=== PATIENT | female | born 1990 | race Caucasian/White ===

== ENCOUNTER 2017-08-17 08:54 | Inpatient (IN) | payer OTHER ==
[~2017-08-17] VITALS: Ht 152.4 cm; Wt 69.4 kg
[~2017-08-17 08:54] MED LIST: AMOX/CLAV POT 81 TAB PO; FLEXERIL10 MG PO; MOBIC15 MG PO; OCELLA 3 MG-0.01 TAB
[2017-08-17 09:49] LABS: ABSOLUTE BASOPHIL COUNT 0 /CUMM (0.0-0.2); ABSOLUTE EOSINOPHIL COUNT 0 /CUMM (0.0-0.7); ABSOLUTE GRANULOCYTE CT 9.7 /CUMM (1.4-6.5); ABSOLUTE MONOCYTE COUNT 0.6 /CUMM (0.10-0.60); BASOPHIL % 0.2 % (0.0-2.0); EOSINOPHIL % 0.1 % (0-5); GRANULOCYTE % 78.6 % (42.2-75.2); HEMATOCRIT 40.7 % (37-47); MEAN CORPUSCULAR HGB 29.3 PG (27.0-31.0); MEAN CORPUSCULAR HGB CONC 33.3 G/DL (33.0-37.0); MEAN CORPUSCULAR VOLUME 88.2 FL (81.0-99.0); MEAN PLATELET VOLUME 9.8 FL (7.4-10.4); PLATELET COUNT 215 /CUMM (130-400); RBC DISTRIBUTION WIDTH 13.1 % (11.5-14.5); RED BLOOD CELL CT 4.61 /CUMM (4.20-5.40); WHITE BLOOD CELL COUNT 12.4 /CUMM (4.8-10.8)
[2017-08-17] MEDS ORDERED: PRENATAL ONE D1 EACH PO (10:11)
--- NOTE | 2017-08-18 05:20 | History & Physical Pre-Op ---
General Information and HPI History of Present Illness: 27 yo G1 lmp 11/04/16 edc 08/11/17 admitted for postdates . care complete and unremarkable. Allergies/Medications Allergies: Coded Allergies: NO KNOWN ALLERGIES (08/17/17) Home Med list Vit No.129/Iron/FA ( One Daily Tablet) 27 MG IRON-800 MCG TABLET 1 TAB PO DAILY (Reported) Past History Medical History Psychiatric: anxiety Surgical History Pertinent Surgical History: non-contributory Past Family/Social History Psychosocial History Smoking Status: Never Smoked Review of Systems Review of Systems Constitutional: Reports: no symptoms. EENTM: Reports: no symptoms. Cardiovascular: Reports: no symptoms. Respiratory: Reports: no symptoms. GI: Reports: no symptoms. Genitourinary: Reports: no symptoms. Musculoskeletal: Reports: no symptoms. Skin: Reports: no symptoms. Neurological/Psychological: Reports: no symptoms. Hematologic/Endocrine: Reports: no symptoms. Immunologic/Allergic: Reports: no symptoms. All Other Systems: Reviewed and Negative Exam & Diagnostic Data Last 24 Hrs of Vital Signs/I&O Intake & Output 08/18 0800 08/18 0000 08/17 1600 Intake Total Output Total Balance Patient 153 lb Weight Physical Exam: HEENT: NCAT Chest: CTA CV: nl S1S2 Pelvic: LTCP Ext: no c/c/e Neuro: nonfocal Assessment/Plan Assessment/Plan: postdates, poor maria score Misoprostil cervical ripening As Ranked By This Provider Problem List: 1.
--- NOTE | 2017-08-18 05:23 | PN- Obstetrical ---
Subjective Subjective: comfortable Review of Systems: temp 99.7 Objective Last 24 Hrs of Vital Signs/I&O Intake & Output 08/18 0800 08/18 0000 08/17 1600 Intake Total Output Total Balance Patient 153 lb Weight Physical Exam: Cx: /-1 ext: NT Obstetric Exam Dilation (cm): 8 Effacement (%): 90 Station: -1 Membranes: SROM Fluid: light meconium Multiple Gestation? No Contractions: q2 Assessment/Plan Assessment/Plan active labor, SROM with lt mec cat 2 tracing IFM Problem List: 1.
[2017-08-18 12:12] VITALS: BP 122/59
[2017-08-19 08:53] LABS: ABSOLUTE BASOPHIL COUNT 0 /CUMM (0.0-0.2); ABSOLUTE EOSINOPHIL COUNT 0 /CUMM (0.0-0.7); ABSOLUTE GRANULOCYTE CT 13.5 /CUMM (1.4-6.5); ABSOLUTE LYMPH COUNT 2.2 /CUMM (1.2-3.4); ABSOLUTE MONOCYTE COUNT 0.7 /CUMM (0.10-0.60); BASOPHIL % 0.3 % (0.0-2.0); EOSINOPHIL % 0.1 % (0-5); GRANULOCYTE % 82.1 % (42.2-75.2); MEAN CORPUSCULAR HGB 29.5 PG (27.0-31.0); MEAN CORPUSCULAR HGB CONC 33.3 G/DL (33.0-37.0); MEAN CORPUSCULAR VOLUME 88.5 FL (81.0-99.0); MEAN PLATELET VOLUME 9.1 FL (7.4-10.4); PLATELET COUNT 136 /CUMM (130-400); RBC DISTRIBUTION WIDTH 12.9 % (11.5-14.5); WHITE BLOOD CELL COUNT 16.5 /CUMM (4.8-10.8)
--- NOTE | 2017-08-19 11:40 | Labor & Delivery Summary ---
Delivery Summary Vaginal Delivery: Vaginal: vertex : : vacuum Station/Position at [place]: +3 direct OP Episiotomy/Lacerations: Episiotomy/Lacerations: episiotomy Type: Right mediolateral with third-degree extension Repair: Layered 0 and 3-0 Polysorb Anesthesia: Epidural and local Placenta: Placenta: manual Anesthesia: epidural, light sedation Cord PH Value: 7.17 Baby's Weight: 7 lbs. 3 oz. 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
[2017-08-19 12:37] LABS: HEMATOCRIT 25.6 % (37-47); RED BLOOD CELL CT 2.89 /CUMM (4.20-5.40)
[2017-08-20] MEDS ORDERED: IBUPROFEN800 M1 PO (13:21)
[2017-08-20] MEDS ORDERED: DOCUSATE SODIU100 M3 PO (13:21)
[2017-08-20] MEDS ORDERED: PERCOCET 5-3251 EACH PO (13:21)
== END 2017-08-20 15:00 | DRG 775 ==
LOC: GNO 08:54
PROVIDERS: Obstetrics & Gynecology
PROC: 0W8NXZZ Division of Female Perineum, External Approach (ICD-10-PCS; principal; 2017-08-19)
PROC: 10D07Z6 Extraction of Products of Conception, Vacuum, Via Natural or Artificial Opening (ICD-10-PCS; principal; 2017-08-19)
DX: O77.9 Labor and delivery complicated by fetal stress, unspecified (principal); Z37.0 Single live birth; Z3A.41 41 weeks gestation of pregnancy; O77.0 Labor and delivery complicated by meconium in amniotic fluid
CPT/HCPCS: GNOP; 36415; 81001; 84112; 87086; J1885; J7120

== ENCOUNTER 2017-08-23 18:54 | Emergency (ER) | payer OTHER ==
[~2017-08-23] VITALS: Ht 152.4 cm; Wt 65.3 kg
[~2017-08-23 18:54] MED LIST changes: +DOCUSATE SODIU100 M3 PO; +IBUPROFEN800 M1 PO; +PERCOCET 5-3251 EACH PO; +PRENATAL ONE D1 EACH PO
--- NOTE | 2017-08-23 22:28 | ED HEADACHE COMPLAINT ---
History of Present Illness General Chief Complaint: General Adult Stated Complaint: PT GOT A EPIDURAL THDAY AND HEADACHE EVERY SINCE Source: patient, family Exam Limitations: no limitations Vital Signs & Intake/Output Vital Signs & Intake/Output Vital Signs Date Time Temp Pulse Resp B/P B/P Pulse O2 O2 Flow FiO2 Mean Ox Delivery Rate 08/24 0209 98.5 71 20 120/90 98 Room Air 08/23 2329 98.5 67 20 143/90 100 Room Air 08/23 1927 97.2 66 22 135/92 99 Room Air ED Intake and Output 08/24 0000 08/23 1200 Intake Total 2000 Output Total Balance 1999 Intake, IV 1999 Patient 144 lb Weight Weight Reported by Patient Measurement Method Allergies Coded Allergies: NO KNOWN ALLERGIES (NONE 08/19/17) Reconcile Medications Docusate Sodium 100 MG CAPSULE 100 MG PO BID PRN STOOL SOFTENER Ibuprofen 800 MG TABLET 800 MG PO Q6P PRN UTERINE CRAMPING Oxycodone HCl/Acetaminophen (Percocet 5-325 MG Tablet) 5 MG-325 MG TABLET 1 TAB PO Q3P PRN PAIN SCALE 5-10 Vit No.129/Iron/FA ( One Daily Tablet) 27 MG IRON-800 MCG TABLET 1 TAB PO DAILY (Reported) Triage Note: HAD EPIDURAL ON 08/18, AND VAGINAL DELIVERY, DC'D ON 08/20. C/O HAD A HEADACHE WITH NASUEA SINCE. Triage Nurses Notes Reviewed? yes Onset: Abrupt Duration: day(s): (5), constant, continues in ED, getting worse Timing: single episode today Quality/Severity: moderate, pressure, throbbing Severity Numbers: 7 Head Injury Location: global No Modifying Factors: none Associated Symptoms: nausea/vomiting LMP (ages 10-50): unknown : No Patient currently breastfeeds: Yes HPI: 27-year-old female no past medical history 5 days status post uncomplicated vaginal delivery presents for evaluation of a headache. Patient states that she received an epidural for pain control during the delivery 5 days ago. She states that she developed a headache while in the hospital shortly after the epidural. She was treated with Tylenol and fluids and headache improved and she was discharged. She states that after discharge the headache worsened and is now constant and getting worse. The pain is located globally in her head described as pressure and throbbing. She's been taking Tylenol and IBUPROFEN at home without much improvement. She does report a history of migraines and feels like this is similar. She reports associated nausea without vomiting and some intermittent blurred vision. No fevers, neck pain, rashes, abdominal pain chest pain shortness of breath or any other associated symptoms. She currently is breast-feeding. (Arya Joiner) Past History Travel History Traveled to [place] past 21 day No Medical History Any Pertinent Medical History? see below for history Psychiatric: anxiety Surgical History Surgical History: non-contributory Psychosocial History What is your primary language Upper Sorbian Tobacco Use: Never used ETOH Use: denies use Family History Hx Contributory? No (Arya Joiner) Review of Systems Review of Systems Constitutional: Reports: no symptoms. Eyes: Reports: no symptoms. Ears, Nose, Throat, Mouth: Reports: no symptoms. Respiratory: Reports: no symptoms. Cardiovascular: Reports: no symptoms. Gastrointestinal/Abdominal: Reports: nausea. Genitourinary: Reports: no symptoms. Musculoskeletal: Reports: no symptoms. Skin: Reports: no symptoms. Neurological/Psychological: Reports: headache. Hematologic/Endocrine: Reports: no symptoms. Endocrine: Reports: no symptoms. Immunologic/Allergic: Reports: no symptoms. All Other Systems: Reviewed and Negative (Arya Joiner) Physical Exam Physical Exam General Appearance: well developed/nourished, no apparent distress, alert, awake Head: atraumatic, normal appearance Eyes: Bilateral: normal appearance, PERRL, EOMI. Ears, Nose, Throat: normal pharynx, normal ENT inspection, hearing grossly normal Neck: normal inspection, supple, full range of motion Respiratory: normal breath sounds, chest non-tender, no respiratory distress, lungs clear Cardiovascular: regular rate/rhythm, normal peripheral pulses Gastrointestinal: normal bowel sounds, soft, non-tender, no organomegaly Back: normal inspection, normal range of motion, no vertebral tenderness Extremities: normal inspection, normal capillary refill, normal range of motion, no edema Psychiatric: awake, alert, oriented x 3 Cranial Nerves: normal hearing, normal speech, PERRL Coordination/Gait: normal finger to nose, normal gait Motor/Sensory: no motor/sensory deficits Skin: intact, normal color, warm/dry Core Measures Sepsis Present: No Sepsis Focused Exam Completed? No (Arya Joiner) Progress Differential Diagnosis: cluster WALSH, IC mass/tumor, intracranial Hem., meningitis , migraine WALSH, post LP headache, subarach. Hem., tension WALSH Plan of Care: Orders Procedure Date/time Status Regular Diet 08/24 B Active Patient Data 08/24 020 Active Saline Lock 08/25 11 Active Misc Message 08/25 11 Active ED Holding Orders 08/25 11 Active Admit to inpatient 08/25 11 Active Code Status 08/25 11 Active URINALYSIS 08/24 5 Complete COMPREHENSIVE METABOLIC PANEL 08/24 5 Complete CBC WITHOUT DIFFERENTIAL 08/24 5 Complete Intake & Output 08/23 9649 Active Current Medications Sig/Yomaira Start time Last Medication Dose Stop Time Status Admin Ketorolac 30 MG Q6 08/24 0600 UNVr Tromethamine 08/24 1201 (Toradol) Acetaminophen 1,000 MG Q6H 08/24 14 AC (Ofirmev) 08/24 0629 N/A 1 UNIT (No Carrier) Dextrose/Sodium 1,000 ML .Q10H 08/24 14 AC 08/24 Chloride 0047 (D5W-1/2 Normal Saline 1000ML) Ondansetron HCl 4 MG Q6P PRN 08/24 001 AC (Zofran) Pregabalin 100 MG Q8P PRN 08/24 001 AC (Lyrica) Laboratory Tests 08/24/17 0044: Anion Gap 10, Estimated GFR > 60, BUN/Creatinine Ratio 10.0, Glucose 80, Calcium 7.8 L, Total Bilirubin 0.4, AST 22, ALT 45, Alkaline Phosphatase 98, Total Protein 5.4 L, Albumin 2.8 L, Globulin 2.6, Albumin/Globulin Ratio 1.1, CBC w Diff NO MAN DIFF REQ, RBC 3.17 L, MCV 88.4, MCH 29.4, MCHC 33.3, RDW 13.4, MPV 7.2 L, Gran % 81.2 H, Lymphocytes % 13.6 L, Monocytes % 4.4, Eosinophils % 0.5, Basophils % 0.3, Absolute Granulocytes 9.1 H, Absolute Lymphocytes 1.5, Absolute Monocytes 0.5, Absolute Eosinophils 0.1, Absolute Basophils 0, Urinalysis LIGHT H, Urine Color PINK H, Urine Clarity CLDY H, Urine pH 6.5, Ur Specific [place] 1.020, Urine Protein 30 H, Urine Ketones 40 H, Urine Nitrite NEG, Urine Bilirubin NEG, Urine Urobilinogen 0.2, Ur Leukocyte Esterase SMALL H, Ur Microscopic SEDIMENT EXAMINED, Urine RBC 50-75 H, Urine WBC 15-25 H, Ur Epithelial Cells FEW, Urine Bacteria FEW H, Urine Mucus FEW, Urine Hemoglobin LARGE H, Urine Glucose NEG Patient seen and evaluated. She's had a headache for the past 5 days since a epidural. She does also report a previous history of headaches. This is similar. She is neurologically intact vital signs are stable. Patient is medicated with IV fluids IV Tylenol IV Toradol without any improvement. Case discussed with anesthesia who does not recommend a blood patch at this time. They feel like headaches related to lumbar punctures are self-limiting and this may not be related since she has a previous headache history. They recommended. Gamblin 100 mg every 8 hours as needed. Discussed with patient about not breast-feeding while on this medication. Discussed with Dr. Walton who spoke with Dr. Calloway who will admit the patient to his service. Basic labs ordered. Patient was admitted to the [facility] service. (Arya Joiner) Departure Departure Disposition: STILL A PATIENT Condition: Stable Clinical Impression Primary Impression: Headache Qualifiers: Headache type: unspecified Headache chronicity pattern: acute headache Intractability: intractable Qualified Code: R51 - Headache Referrals: Esmer Silvestre DO (PCP/Family) Departure Forms: Customer Survey General Discharge Information (Arya Joiner) Admission Note Spoke With: Jake Calloway MD Documentation of Exam: Documentation of any treatments & extenuating circumstances including Concerns Regarding Discharge (functional status, medication knowledge or non-compliance, living conditions, etc.) that warrant an admission rather than observation: pt with headache, most likely due to spinal anesthesia... will treat with supportive meds overnight and have anesthesiology attending evaluate patient. PA/CHEMICALS FERMENTATION OPERATOR Co-Sign Statement Statement: ED Attending supervision documentation- X] I saw and evaluated the patient. I have also reviewed all the pertinent lab results and diagnostic results. I agree with the findings and the plan of care as documented in the PA's/CHEMICALS FERMENTATION OPERATOR's documentation. 08/23/17, 23:45... Pt with spinal headache, most likely from spinal anesthesia vs migraine.... exam otherwise benign... will check labs, consult anesthesia. [] I have reviewed the ED Record and agree with the PA's/CHEMICALS FERMENTATION OPERATOR's documentation. [] Additions or exceptions (if any) to the PAs/CHEMICALS FERMENTATION OPERATOR's note and plan are summarized below: [] (Isabelle ELDRIDGE,Alton Gutierrez)
[2017-08-24 01:00] LABS: ABSOLUTE BASOPHIL COUNT 0 /CUMM (0.0-0.2); ABSOLUTE GRANULOCYTE CT 9.1 /CUMM (1.4-6.5); ABSOLUTE MONOCYTE COUNT 0.5 /CUMM (0.10-0.60); MEAN PLATELET VOLUME 7.2 FL (7.4-10.4)
[2017-08-24 01:08] LABS: ABSOLUTE EOSINOPHIL COUNT 0.1 /CUMM (0.0-0.7); ABSOLUTE LYMPH COUNT 1.5 /CUMM (1.2-3.4); BASOPHIL % 0.3 % (0.0-2.0); EOSINOPHIL % 0.5 % (0-5); GRANULOCYTE % 81.2 % (42.2-75.2); MEAN CORPUSCULAR HGB 29.4 PG (27.0-31.0); MEAN CORPUSCULAR HGB CONC 33.3 G/DL (33.0-37.0); MEAN CORPUSCULAR VOLUME 88.4 FL (81.0-99.0); RBC DISTRIBUTION WIDTH 13.4 % (11.5-14.5); RED BLOOD CELL CT 3.17 /CUMM (4.20-5.40); WHITE BLOOD CELL COUNT 11.2 /CUMM (4.8-10.8)
[2017-08-24 01:12] LABS: PLATELET COUNT 294 /CUMM (130-400)
[2017-08-24 12:22] VITALS: BP 138/80
== END 2017-08-24 12:53 ==
LOC: ERH 18:54 → ERHI 08-24 00:12 → ERH 08-24 00:12 → ERHI 08-24 12:53 → ERH 08-24 12:53 → ERHI 08-24 13:00
PROVIDERS: Physician Assistant Medical
DX: O89.4 Spinal and epidural anesthesia-induced headache during the puerperium (principal)
CPT/HCPCS: ERO; 81001; 96361; 96374; 96375; J0131; J1885; J7042